=== PATIENT | male | born 1990 | race Caucasian/White ===

== ENCOUNTER 2018-02-18 19:19 | Emergency (ER) | payer SELFPAY ==
[2018-02-18] MEDS ORDERED: DIPH,PERTUS(ACELL)TETVAC-LF 0.5 ML VIAL IM ONE (21:50)
--- NOTE | 2018-02-18 22:13 | ED ---
General Adult HPI - General Source: patient, RN notes reviewed, old records reviewed Mode of arrival: ambulatory Limitations: no limitations <Zach Sanches - Last Filed: 02/19/18 11:01> <Ayush Purdy - Last Filed: 02/21/18 23:42> - General Chief complaint: Extremity Injury, Upper Stated complaint: Finger injury - History of Present Illness Initial comments: 27-year-old male patient presents to ED after sustaining an injury in his car. Patient was using a hand-held branden which she was moving [id number] having an area the car when she is not able to clearly visualize what he was doing. Patient then believes he suffered a mild penetrating trauma with a exposed wire on the distal aspect of his R third digit. Patient has some tattooing under his third right nail. Patient wanted to be evaluated to make sure that he does not have a foreign body in his hand. patient has a mild amount of tenderness in his third DIP/pad of his finger. patient does not know date of last tetanus up- to-date. patient denies other signs symptoms. Systemic: Pt denies fatigue, myalgia, fever/chills, rash. Pt denies weakness, night sweats, weight loss. Neuro: Pt denies headache, visual disturbances, syncope or pre-syncope. HEENT: Pt denies ocular discharge or irritation, otalgia, rhinorrhea, pharyngitis or notable lymphadenopathy. Cardiopulmonary: Pt denies chest pain, SOB, heart palpitations, dyspnea on exertion. Abdominal/GI: Pt denies abdominal pain, n/v/d. : Pt denies dysuria, burning w/ urination, frequency/urgency. Denies new onset urinary or bowel incontinence. MSK: Pt denies myalgia, loss of strength or function in extremities. (Zach Sanches) - Related Data Previous Rx's Medication Instructions Recorded Cephalexin [Keflex] 500 mg PO Q6HR 7 Days #28 cap 02/18/18 Allergies Allergy/AdvReac Type Severity Reaction Status Date / Time diphenhydramine HCl Allergy Unknown Verified 02/18/18 20:15 [From Benadryl] Childhood Review of Systems ROS Other: All systems not noted in ROS Statement are negative. <Zach Sanches - Last Filed: 02/19/18 11:01> ROS Other: All systems not noted in ROS Statement are negative. <Ayush Purdy - Last Filed: 02/21/18 23:42> ROS Statement: Those systems with pertinent positive or pertinent negative responses have been documented in the HPI. Past Medical History Past Medical History: Asthma History of Any Multi-Drug Resistant Organisms: None Reported Past Surgical History: Hernia Repair Past Psychological History: No Psychological Hx Reported Smoking Status: Current every day smoker Past Alcohol Use History: Rare Past Drug Use History: None Reported <Zach Sanches - Last Filed: 02/19/18 11:01> General Exam Limitations: no limitations <Zach Sanches - Last Filed: 02/19/18 11:01> <Ayush Purdy - Last Filed: 02/21/18 23:42> - General Exam Comments Initial Comments: Constitutional: NAD, AOX3, Pt has pleasant affect. HEENT: NC/AT, trachea midline, neck supple, no lymphadenopathy. Posterior pharynx non erythematous, without exudates. External ears appear normal, without discharge. Mucous membranes moist. Eyes PERRLA, EOM intact. There is no scleral icterus. No pallor noted. Cardiopulmonary: RRR, no murmurs, rubs or gallops, no JVD noted. Lungs CTAB in anterior and posterior south. No peripheral edema. Abdominal exam: Abdomen soft and non-distended. Abdomen non-tender to palpation in all 4 quadrants. Bowel sounds active in LLQ. No hepatosplenomegaly. Neuro: CN II-XII grossly intact. MSK: Mild tattooing noted under the nail bed and right hand. Patient has a mild amount of tenderness to the distal pad of the third right digit. Patient has full active range of motion of right hand. Neurovascularly intact. Radial pulse +2. Capillary refill less than 2 seconds. Sensation intact. (Zach Sanches) Vital Signs 02/18/18 02/18/18 19:45 22:45 Temperature 98.3 F 97.5 F L Pulse Rate 75 66 Respiratory 16 18 Rate Blood Pressure 111/73 130/83 O2 Sat by Pulse 98 95 Oximetry Medical Decision Making <Zach Sanches - Last Filed: 02/19/18 11:01> <Ayush Purdy - Last Filed: 02/21/18 23:42> - Medical Decision Making 27-year-old male patient presents to ED after sustaining an injury in his car. Patient was using a hand-held branden which she was moving [id number] having an area the car when she is not able to clearly visualize what he was doing. Patient then believes he suffered a mild penetrating trauma with a exposed wire on the distal aspect of his R third digit. Patient has some tattooing under his third right nail. Patient wanted to be evaluated to make sure that he does not have a foreign body in his hand. patient has a mild amount of tenderness in his third DIP/pad of his finger. patient does not know date of last tetanus up- to-date. patient denies other signs symptoms. musculoskeletal physical exam displayed Mild tattooing noted under the nail bed and right hand. Patient has a mild amount of tenderness to the distal pad of the third right digit. Patient has full active range of motion of right hand. Neurovascularly intact. Radial pulse +2. Capillary refill less than 2 seconds. Sensation intact. physical exam did not display any other pathologic findings, stem exam including cardiopulmonary, HEENT, neuro, abdominal. Patient tetanus updated. Plain film did not display any radiopaque foreign body. Patient prescribed by mouth Keflex. Patient to follow-up with orthopedics in one day. Patient given strict return precautions. Patient to return to ED if any new signs or symptoms develop including worsening pain and right third digit, increased redness, increased swelling, discharge. Patient told that this injury has a high risk for infection, emphasize that he must follow-up to ortho tomorrow, patient verbalized understanding. patient to follow with PCP in 1-2 days as well. Case discussed with Dr. Palmer. (Zach Sanches) I saw this patient in conjunction with the physician licensed investment sales assistant. I performed independent history and physical exam. Agree with case management. (Ayush Purdy) Disposition Is patient prescribed a controlled substance at d/c from ED?: No Time of Disposition: 22:20 <Zach Sanches - Last Filed: 02/19/18 11:01> <Ayush Purdy - Last Filed: 02/21/18 23:42> Clinical Impression: Laceration Disposition: HOME SELF-CARE Condition: Good Instructions: Laceration (DC) Prescriptions: Cephalexin [Keflex] 500 mg PO Q6HR 7 Days #28 cap Referrals: None,Stated [Primary Care Provider] - 1-2 days Patrice Davey MD [STAFF PHYSICIAN] - 1-2 days
--- NOTE | 2018-02-18 22:28 | XR ---
PROCEDURE: XR hand complete RT 3V DATE AND TIME: 02/18/2018 8:48 PM CLINICAL INDICATION: [facility] Pain TECHNIQUE: Department protocol. 3V COMPARISON: None FINDINGS: There is no fracture or malalignment. Bone mineralization is normal. No bony erosions. There is middle finger soft tissue swelling, nonspecific finding. No soft tissue emphysema. No radiop aque foreign body. IMPRESSION: Soft tissue swelling, middle digit.
[2018-02-18 22:46] VITALS: BP 130/83; PULSE 66; RESP 18; TEMP 97.5
== END 2018-02-18 23:15 | disposition home or self-care (01) ==
LOC: EC 19:19
DX: S61.212A Laceration without foreign body of right middle finger without damage to nail, initial encounter (principal); F17.200 Nicotine dependence, unspecified, uncomplicated; Z88.8 Allergy status to other drugs, medicaments and biological substances; Z23 Encounter for immunization; W45.8XXA Other foreign body or object entering through skin, initial encounter; Y93.89 Activity, other specified; Y92.810 Car as the place of occurrence of the external cause
CPT/HCPCS: 90471; 90715; 99284